=== PATIENT | male | born 1945 | race Caucasian/White ===

== ENCOUNTER → 2016-09-02 | Outpatient (CLI) | payer MEDICARE, BC ==
[~2016-09-02] MED LIST: ASACOL400 MG PO; ASPIRIN EC81 M1 PO; ASPIRIN325 M1 PO; COREG6.25 MG PO; LIPITOR40 MG PO; LOTREL 10-20 MG1 CAP PO; MULTIVITAMIN1 UDCAP PO; NITROGLYGERIN0.4 MG SL; PANTOPRAZOLE SO40 MG PO; PEPCID PO; PERCOCET 5-3251 TAB PO; PLAVIX PO; PRAVASTATIN SOD40 MG PO; TRIAMTERENE-HCT1 TA8 PO; VITAMIN B12-FO1 EACH PO
--- NOTE | ~2016-09-02 | US37 ---
[facility] A Service of [facility] & [facility] RADIOLOGY TEXT RESULTS PATIENT: MALU CRENSHAW LOCATION: [facility]IV : 45 UNIT #: [id number] AGE: [address]: Noé Lauren MD SEX: M ORDER DR: [id number] [facility] [address] [place], [place] [address] [id number] O MR#: [id number] Acc #: [id number] NAME: MALU CRENSHAW. : 1945 SEX: M STUDY DATE/TIME: 09/02/2016 8:48 UNIT: [facility] ROOM: STUDY DESCRIPTION: US Carotid W/Doppler Bilateral Attending Physician: Noé Lauren M.D. Referring Physician: Noé Lauren M.D. Ordering Physician: Noé Lauren M.D. Primary Care Physician: Ze Marquez M.D. MEDICAL IMAGING REPORT This report is preliminary unless electronic signature is present EXAM Bilateral carotid Doppler HISTORY Carotid stenosis, history of right carotid endarterectomy. FINDINGS The right common carotid, internal carotid and external carotid arteries are patent. There is tortuosity of the internal carotid artery but no evidence of plaque or intimal thickening. Velocity of the common carotid artery is 101 cm/sec. Peak systolic velocity of the right proximal internal carotid artery 172 cm/sec with an end diastolic velocity of 46 cm/sec for an ICA:CCA ratio of 1.7. External carotid artery had a velocity of 168 cm/sec. The vertebral artery is visualized with antegrade flow. The left common carotid, internal carotid and external carotid arteries are patent. There is diffuse mild plaque throughout. The velocity of the common carotid artery is 105 cm/sec. Peak systolic velocity of the left proximal internal carotid artery is 172 cm/sec with and end diastolic velocity of 44 cm/sec for an ICA:CCA ratio of 1.7. External carotid artery had a velocity of 381 cm/sec. The vertebral artery is visualized with antegrade flow. IMPRESSION 1. Normal appearance of the right internal carotid artery and 50% to 69% stenosis of the left internal carotid artery. 2. No stenosis of the right external carotid artery but elevated velocity of the left consistent with stenosis. 3. Antegrade flow of the vertebral arteries. [facility] A Service of [facility] & [facility] RADIOLOGY TEXT RESULTS PATIENT: MALU CRENSHAW LOCATION: [facility] : 45 UNIT #: [id number] AGE: [address]: Noé Lauren MD SEX: M ORDER DR: Dictated by... Noé Lauren M.D. THIS IS AN ELECTRONICALLY VERIFIED REPORT Noé Lauren M.D. at 09/03/2016 7:10 AM DOLORES/juan alberto TD: 09/02/2016 14:16 JOB #: [id number] MEDICAL IMAGING REPORT Page 1 of 1 COPY
== END | disposition home or self-care (01) ==
LOC: CNIV 08:14
DX: Z48.812 Encounter for surgical aftercare following surgery on the circulatory system (principal); I65.23 Occlusion and stenosis of bilateral carotid arteries; I65.22 Occlusion and stenosis of left carotid artery; Z98.890 Other specified postprocedural states
CPT/HCPCS: 93880